=== PATIENT | male | born 1960 | race Caucasian/White ===

== ENCOUNTER 2024-07-26 10:37 | Emergency (ER) | payer SELFPAY ==
[2024-07-26 10:46] VITALS: PULSE 130; RESP 22; O2SAT 98
--- NOTE | 2024-07-26 10:46 | PC.NURSE ---
Called [employer] spoke with [employer] officer Arthur informed him that Patient walked out of the ER triage upon EMS giving Triage nurse report, patient refused to be treated informed EMS that he took a handful of Methamphetamines gave physical description to officer Arthur for well check and informed him patient walking [place] on [address]. Per officer Arthur he will send unit to attempt to find patient.
== END 2024-07-26 19:46 | disposition left against medical advice (07) ==
LOC: SERX 11:25
PROVIDERS: Emergency Provider Emergency Medicine
DX: Z53.21 Procedure and treatment not carried out due to patient leaving prior to being seen by health care provider (principal)

== ENCOUNTER 2024-12-10 14:46 | Emergency (ER) | payer SELFPAY ==
[2024-12-10 14:47] VITALS: BMI 29.5
--- NOTE | 2024-12-10 15:01 | PC.NURSE ---
SPOKE TO JAY FROM [facility] TO REPORT PHYSICAL A THAT PT SUSTAIED FROM [facility] [facility], PER PT. PER JAY, WILL LET OUR OFFICERS KNOW AND DISPATCH SOMEONE SOON TO [facility] ED.
--- NOTE | 2024-12-10 15:10 | PC.NURSE ---
pt left room stating he felt better and did not want to see provider anymore
[2024-12-10 15:16] VITALS: BP 126/90; PULSE 90; RESP 18; TEMP 36.6; O2SAT 97
== END 2024-12-11 00:28 | disposition home or self-care (01) ==
PROVIDERS: Emergency Provider Emergency Medicine
DX: Z53.21 Procedure and treatment not carried out due to patient leaving prior to being seen by health care provider (principal)
CPT/HCPCS: 99281

== ENCOUNTER 2025-05-12 00:30 | Emergency (ER) | payer MEDICAID, SELFPAY ==
[2025-05-12] VITALS (8 sets, daily range): BP systolic 132–177; BP diastolic 88–123; PULSE 73–101; RESP 15–20; O2SAT 98–100; BMI 29.5
--- NOTE | 2025-05-12 00:39 | PD.EDSYNC ---
ED Syncope RME/HPI General Chief Complaint: Dizziness Stated Complaint: SYNCOPE Time Seen by Provider: 05/12/25 00:48 Arrival date/time: 05/12/25 00:30 RME / HPI RME / HPI narrative: This section includes all my notes and documentations, including HPI, PE, and ED course. Arben Marquez MD HPI: 65 y/o male with Hx of HTN here with generalized weakness and feeling faint. Was out in the sun and he all day today. The symptoms have been progressively getting worse. No headache. No speech or visual impairment. No chest pain or shortness of breath. No loss of power in arms or legs. Not taking any medications. No other complaints. ROS: All negative except as documented in HPI. Physical Exam: General: Alert and oriented. No acute distress. High BP noted. Eyes: Conjunctivae and lids clear. EOMI. PERRL. ENT: No nasal congestion. Pharynx normal. Tympanic membrane normal bilaterally. Neck: Supple. No carotid bruit. No JVD. Heart: RRR. Lungs: No respiratory distress. Good air movement. No rhonchi, wheezing, rales. Abdomen: Soft and nontender. Legs: No clubbing, cyanosis, edema. Skin: Warm and dry. Neuro: Alert and oriented X 3. Cranial Nerves II-XII grossly intact. No peripheral motor deficits. I reviewed EMS notes. I reviewed all diagnostic test results: My interpretation of the EKG is: Atrial fibrillation (94 bpm) with nonspecific ST-T changes. My interpretation of the chest x-ray is: NAD. Blood tests and urine tests remarkable for Mg 1.4 and CK 235. At this point, diagnoses include: Heat exhaustion, HTN. Treatment here included: IVF, Magnesium sulfate 2 G, Catapres 0.2 mg, Lopressor 50 mg. Recommended outpatient care. Based on my best medical judgment, made decision no further evaluation or treatment indicated at this time. Patient understands and agrees to the discharge instructions customized and printed, see below. Discharge Instructions from Dr. Marquez: 1. After extensive evaluation, there is no immediately life-threatening condition. Such as heart attack. 2. You were treated for heat exhaustion and low magnesium level. 3. Avoid prolonged exposure to heat and sun. Your job is to stay hydrated.? Increase oral fluid and maintain clear urine.? If dark or yellow, increase oral fluid. 4. Take metoprolol ER 100 mg twice daily. You will live longer with lower BP and heart rate. 5. Some good choices are water (but not only water because it will cause electrolyte abnormalities), sports drinks like Gatorade (with less sugar content), coconut water, chicken stock, and other fluid with electrolytes (like Pedialyte). 6. See a private doctor on 05/13/2025 for recheck and further care. Ask to review all test results and official radiology reports, to make sure you receive all necessary follow-ups and monitoring, including repeat magnesium level. To make sure there is no serious underlying heart condition, ask to help you get more tests for your heart that cannot be done here in the ER. Such as Holter Monitor (cardiac monitoring at home from a day to even a month), heart stress test (on treadmill or with medication), echocardiogram (imaging of your heart structures), heart catherization (checking for blockages in your heart arteries), and a referral to see a [facility]. 7. Seek immediate medical care with worsening or with any concerns. Arben Marquez MD Related Data Previous Rx's ?Medication ?Instructions ?Recorded metoprolol succinate 100 mg 100 mg PO BID #60 tabs 05/12/25 tablet,extended release 24 hr Allergies Allergy/AdvReac Type Severity Reaction Status Date / Time No Known Allergies Allergy Verified 05/12/25 01:07 Review of Systems Review of Systems Systems Reviewed: All systems reviewed, normal except as documented Past Medical History Past Medical History CARDIAC: Positive Hypertension Social History SMOKING STATUS: Never smoker ED Exam Narrative Physical exam: Refer to HPI Course Course Course Narrative: CXR is ordered for determining the etiology of shortness of breath. Quality Measures none Orders Category Date Time Status CT Screening NOW Care 05/12/25 00:50 Completed EKG (ED ONLY) *Do not use* NOW Care 05/12/25 00:40 Completed Orthostatic Vitals NOW Care 05/12/25 00:48 Completed Saline [Insert IV] NOW Care 05/12/25 00:48 Completed EKG (ED Only) Stat Exams 05/12/25 00:39 Ordered XR chest 1V portable Stat Exams 05/12/25 00:49 Completed Alcohol, Blood Medical Stat Lab 05/12/25 00:55 Completed BMP [Basic Metabolic Panel] Stat Lab 05/12/25 00:55 Completed BNP [B-Type Natriuretic Peptide] Stat Lab 05/12/25 00:55 Completed CBC Stat Lab 05/12/25 00:55 Completed CK [Creatine Kinase] Stat Lab 05/12/25 00:55 Completed D-Dimer Stat Lab 05/12/25 00:55 Completed Drug Screen,Urine Stat Lab 05/12/25 00:55 Completed Magnesium Stat Lab 05/12/25 00:55 Completed Troponin I Stat Lab 05/12/25 00:55 Completed UA, C/S IF [Urinalysis, C/S if Indicated] Stat Lab 05/12/25 00:55 Completed Magnesium Sulfate 2 GM Ivpb [Magnesium Sulfate Ivpb] Med 05/12/25 02:06 Discontinued 2 gm in 50 ml IV X1 Metoprolol Tartrate [Lopressor] Med 05/12/25 00:49 Discontinued 50 mg PO X1 ONE Sodium Chloride 0.9% 1000 ml [Ns] 1,000 ml Med 05/12/25 00:48 Discontinued IV 999 mls/hr cloNIDine HCL [Catapres] Med 05/12/25 00:49 Discontinued 0.2 mg PO X1 ONE Vital Signs Vital signs: Vital Signs Pulse Rate 101 H 05/12/25 00:35 Respiratory Rate 15 05/12/25 00:35 Blood Pressure 177/114 H 05/12/25 00:35 Pulse Oximetry (%) 100 05/12/25 00:35 Oxygen Delivery Method Room Air 05/12/25 00:35 Syncope MDM Narrative MDM Narrative:: Scribe Attestation: Lainey Crenshaw am scribing for and in the presence of Dr. Marquez. Provider Notation: Although this document has been carefully reviewed, there may still be some phonetic and other typographical errors.? These errors are purely grammatical due to imperfections in the software program and should not be construed in any way to? compromise the substance of the patient's medical care during this visit. 65 y/o male with Hx of HTN here with generalized weakness and feeling faint. Was out in the sun and he all day today. The symptoms have been progressively getting worse. No headache. No speech or visual impairment. No chest pain or shortness of breath. No loss of power in arms or legs. Not taking any medications. No other complaints. Patient data External records reviewed:: [facility] previous records (No prior ED records available for review.) and EMS form Clinical information provided by:: patient and EMS Social determinants that could affect healthcare access:: housing ([facility] Patient has the following chronic illnesses:: HTN How is presenting disease/condition affected by chronic disease/condition?: exacerbated by Evaluation data The following diagnostics were reviewed and interpreted by me:: lab results, radiology exam(s) and EKG tracing(s) (My interpretation of the EKG is: Atrial fibrillation (94 bpm) with nonspecific ST-T changes. Arben Marquez MD) Lab and/or radiology exams considered but not ordered:: None Interpretation Summary: I reviewed all diagnostic test results: My interpretation of the EKG is: Atrial fibrillation (94 bpm) with nonspecific ST-T changes. My interpretation of the chest x-ray is: NAD. Blood tests and urine tests remarkable for Mg 1.4 and CK 235. Medications / Prescriptions Medications or Prescriptions considered but not ordered:: None Medication administrations:: Medication Administration History Discontinued Medications Clonidine (Clonidine Hcl 0.1 Mg Tablet) 0.2 mg PO X1 ONE Stop: 05/12/25 00:50 Last Admin: 05/12/25 01:37 Dose: 0.2 mg Documented By: MISAEL Sodium Chloride (Ns) 1,000 mls @ 999 mls/hr IV .Q1H1M ONE Stop: 05/12/25 01:48 Last Infusion: 05/12/25 03:05 Dose: Infused Documented By: Admin: 05/12/25 01:38 Dose: 999 mls/hr Documented By: MISAEL Magnesium Sulfate (Magnesium Sulfate Ivpb) 2 gm in 50 mls @ 25 mls/hr IV X1 ONE Stop: 05/12/25 04:05 Last Infusion: 05/12/25 04:28 Dose: Infused Documented By: Admin: 05/12/25 02:28 Dose: 25 mls/hr Documented By: MISAEL Metoprolol Tartrate (Metoprolol Tartrate 25 Mg Tablet) 50 mg PO X1 ONE Stop: 05/12/25 00:50 Last Admin: 05/12/25 01:35 Dose: 50 mg Documented By: MISAEL IVF, Magnesium sulfate 2 G, Catapres 0.2 mg, Lopressor 50 mg. Consultations Consultation(s) initiated? (list below): No Diagnosis Syncope Differential Diagnosis: syncope due to orthostatic hypotension, vasovagal syncope, complete atrioventricular block, subarachnoid hemorrhage, pulmonary embolism and dehydration Most likely diagnosis given after review of the tests above:: HTN, Heat exhaustion Admission Indicated Admission indicated?: not indicated Explain why admission is indicated or not indicated:: With significant improvement and no condition needing emergent intervention, there was no indication for admission. Admission Request Was there a request for admission?: No Disposition Plan Disposition Plan: Discharge Discharge Attestation Discharge Attestation: The patient and all family members were given an opportunity to ask questions and understood the discharge instructions. Discharge instructions specifically effects, indications for sooner follow up or return to the emergency department, and the expected course of current diagnosis. Patient condition: Stable Discharge Plan Plan Patient Disposition: HOME (Self Care) Prescriptions/Referrals Prescriptions/Med Rec: New metoprolol succinate 100 mg tablet extended release 24 hr 100 mg PO BID Qty: 60 0RF Referrals: No Primary/Family,Physician [Primary Care Provider] - In 1 week Problem List Clinical Impression: Heat exhaustion, Hypertension Patient/Caregiver Discharge Instructions Discharge Activity: activity as tolerated Education Materials: ED Heat Exhaustion, ED Hypertension, Established Additional Instructions: Discharge Instructions from Dr. Marquez: 1. After extensive evaluation, there is no immediately life-threatening condition. Such as heart attack. 2. You were treated for heat exhaustion and low magnesium level. 3. Avoid prolonged exposure to heat and sun. Your job is to stay hydrated.? Increase oral fluid and maintain clear urine.? If dark or yellow, increase oral fluid. 4. Take metoprolol ER 100 mg twice daily. You will live longer with lower BP and heart rate. 5. Some good choices are water (but not only water because it will cause electrolyte abnormalities), sports drinks like Gatorade (with less sugar content), coconut water, chicken stock, and other fluid with electrolytes (like Pedialyte). 6. See a private doctor on 05/13/2025 for recheck and further care. Ask to review all test results and official radiology reports, to make sure you receive all necessary follow-ups and monitoring, including repeat magnesium level. To make sure there is no serious underlying heart condition, ask to help you get more tests for your heart that cannot be done here in the ER. Such as Holter Monitor (cardiac monitoring at home from a day to even a month), heart stress test (on treadmill or with medication), echocardiogram (imaging of your heart structures), heart catherization (checking for blockages in your heart arteries), and a referral to see a [facility]. 7. Seek immediate medical care with worsening or with any concerns. Print Language: Bur[place]ian Stand Alone Forms: [facility] Award Info., Patient Portal Info Letter
--- NOTE | 2025-05-12 00:49 | XR_ITS ---
Examination: AP chest single view TECHNIQUE: AP portable upright chest single view Date and time: May 12, 2025, 0204 hours INDICATIONS: Shortness of breath chest pain today FINDINGS: Normal heart size. Lungs are clear. The osseous structures are intact. IMPRESSION: No active disease.
[2025-05-12] MEDS: METOPROLOL TARTRATE 25 MG TABLET 50 MG PO (01:35)
[2025-05-12] MEDS: SODIUM CHLORIDE 0.9% 1000 ML 1,000 ML 999 ML IV (01:38)
[2025-05-12 01:42] LABS: Collection Type, Urine Clean Catch; RBC,Urine 0 /hpf (0-3); Squamous Epithelial Cell,Urine 0 /hpf (0-5); WBC,Urine 0 /hpf (0-5)
[2025-05-12 01:45] LABS: Basophils # (Auto) 0.0 Thou/mm3 (0.0-0.2); Basophils % (Auto) 0 % (0-2.5); Eosinophils # (Auto) 0.1 Thou/mm3 (0.0-0.5); Eosinophils % (Auto) 1 % (0-10); Hematocrit 43.1 % (41.0-53.0); Hemoglobin 14.5 g/dL (13.5-16.0); Immature Granulocytes Auto 0.02 Thou/mm3 (0.00-0.00); Lymphocytes # (Auto) 1.9 Thou/mm3 (1.0-4.8); Lymphocytes % (Auto) 28 % (10-50); Mean Corpuscular HGB Conc 33.6 g/dl (31.0-37.0); Mean Corpuscular Hemoglobin 30.9 pg (25.0-35.0); Mean Corpuscular Volume 92 fL (80-100); Monocytes # (Auto) 0.6 Thou/mm3 (0.0-0.8); Monocytes % (Auto) 8 % (0-12); Neutrophils # (Auto) 4.4 Thou/mm3 (1.8-7.7); Neutrophils % (Auto) 63 % (37-80); Nucleated Red Blood Cell # 0.00 Thou/mm3 (0.00-0.00); Nucleated Red Blood Cell % 0 /100 WBC (0); Platelet Count 209 Thou/mm3 (140-440); RDW Standard Deviation 46.7 fL (35.1-43.9); Red Blood Count 4.69 Miln/mm3 (4.50-5.90); White Blood Count 7.0 Thou/mm3 (3.8-10.6)
[2025-05-12 01:51] LABS: Bacteria,Urine Rare; Bilirubin,Urine Negative (Negative); Blood,Urine Negative (Negative); Clarity,Urine Clear (Clear/Hazy); Color,Urine Colorless (Lt Yel-Yel); Culture Indicated,Urine Not Indicated; Glucose, Urine Negative (Negative); Ketones,Urine Negative (Negative); Leukocyte Esterase,Urine Negative (Negative); Nitrite,Urine Negative (Negative); PH,Urine 6.5 (5.0-7.0); Protein,Urine Negative (Neg - Trace); Specific Gravity,Urine 1.003 (1.001-1.035); Urobilinogen,Urine Negative mg/dL (0.0-1.0)
[2025-05-12 01:56] LABS: Amphetamine/Methamp Scrn,U Negative (Negative); Barbiturate Screen,Urine Negative (Negative); Benzodiazepines Screen,Urine Negative (Negative); Benzoylecgonine Screen, Ur Negative (Negative); Fentanyl Screen,Urine Negative (Negative); Opiate Screen,Urine Negative (Negative); THC Screen,Urine Positive (Negative)
[2025-05-12 02:02] LABS: D-Dimer < 250 ng/mL (<600)
[2025-05-12 02:05] LABS: Alcohol, Blood Medical < 3.0 mg/dL (0-10.0); Anion Gap 10 (7-16); BUN/Creatinine Ratio 15 Ratio (12-20); Blood Urea Nitrogen 15 mg/dL (9-23); Calcium 9.0 mg/dL (8.3-10.6); Carbon Dioxide 22.4 mMol/L (20.0-31.0); Chloride 104 mMol/L (98-107); Creatine Kinase 235 U/L (34-171); Creatinine (Component) 1.0 mg/dL (0.6-1.3); Estimated Creatinine Clearance 80.9 mL/min (>60); Glucose 114 mg/dL (74-106); Magnesium 1.4 mg/dL (1.6-2.6); Osmolality,Calculated 273 (275-295); Potassium 3.6 mMol/L (3.4-5.1); Sodium 136 mMol/L (136-145); Troponin I 0.020 ng/mL (0.0-0.045); eGFR > 60 See Note
[2025-05-12 02:08] LABS: B-Type Natriuretic Peptide 114 pg/mL (0-100)
[2025-05-12] MEDS: Magnesium Sulfate 2 GM Ivpb 2 GM/50 ML BAG IV (02:28)
== END 2025-05-12 04:30 | disposition home or self-care (01) ==
PROVIDERS: Emergency Provider Emergency Medicine
DX: R55 Syncope and collapse (principal); R53.1 Weakness; X30.XXXA Exposure to excessive natural heat, initial encounter; I10 Essential (primary) hypertension
CPT/HCPCS: 36415; 71045; 80048; 80307; 80320; 81001; 82550; 83735; 83880; 84484; 85025; 85379; 93005; 96361; 96365; 96366; 99283; J3475; J7030; A9270; G0480